=== PATIENT | male | born 1960 | race Caucasian/White ===

== ENCOUNTER 2017-01-03 07:52 | Day surgery (SDC) | payer OTHER ==
[2017-01-02 11:44] VITALS: BMI 25.1
[~2017-01-03] VITALS: Ht 177.8 cm; Wt 82.2 kg
[2017-01-03] VITALS (16 sets, daily range): BP systolic 98–115; BP diastolic 61–80; PULSE 62–82; RESP 16–17; Ht 177.8 cm; Wt 82.2 kg
[~2017-01-03 07:52] MED LIST: EPHEDrine SULFATE 50 MG/5 ML SYG ONE
[2017-01-03] MEDS ORDERED: DIPHENHYDRAMINE 50 MG INJ IV PRN (08:30)
[2017-01-03] MEDS ORDERED: CEFAZOLIN 2 GM/50 ML (PMX) 50 ML IVPB ONE (08:30)
[2017-01-03] MEDS ORDERED: OXYCODONE/ACETAMINOPHEN (5/325) TAB PO PRN ×2 (08:30)
[2017-01-03] MEDS ORDERED: ONDANSETRON 4 MG INJ IV PRN (08:30)
[2017-01-03] MEDS ORDERED: HYDROmorphONE (0.2 MG/ML) 10ML SYG IV PRN (08:30)
[2017-01-03] MEDS ORDERED: LACTATED RINGER'S 1,000 ML IV* SCH (08:30)
[2017-01-03] MEDS ORDERED: MEPERIDINE 25 MG INJ IV PRN (08:30)
[2017-01-03] MEDS ORDERED: PROCHLORPERAZINE 10 MG INJ IV PRN (08:30)
[2017-01-03] MEDS ORDERED: FENTAnyl 50 MCG/ML VIAL IV PRN (08:30)
[2017-01-03] MEDS ORDERED: MIDAZOLAM 1 MG/ML 2 ML INJ ONE (08:32)
[2017-01-03] MEDS ORDERED: LIDOCAINE 2% (SDV) 5 ML INJ ONE (08:32)
[2017-01-03] MEDS ORDERED: FENTAnyl 50 MCG/ML VIAL ONE (08:32)
[2017-01-03] MEDS ORDERED: PROPOFOL 20 ML ONE (08:32)
[2017-01-03] MEDS ORDERED: ASPI-664 PO (08:37)
[2017-01-03] MEDS ORDERED: CARV3.1260 PO (08:40)
[2017-01-03] MEDS ORDERED: ADV50050 INHALATION (08:44)
[2017-01-03] MEDS ORDERED: FURO40TA4 PO (08:45)
[2017-01-03] MEDS ORDERED: TRAM-40 PO (08:46)
[2017-01-03] MEDS ORDERED: SIMV20TA PO (08:47)
[2017-01-03] MEDS ORDERED: SPIR25TA PO (08:47)
[2017-01-03] MEDS ORDERED: NIT4 SL (08:47)
[2017-01-03] MEDS ORDERED: MELO-110 PO (08:48)
[2017-01-03] MEDS ORDERED: LISI-313 PO (08:48)
[2017-01-03] MEDS ORDERED: BUPIVACAINE 0.5% (SDV) 30 ML INJ ONE (09:59)
--- NOTE | 2017-01-03 10:00 | HPN ---
Date/Time of Note Date/Time of Note DATE: 01/03/17 TIME: 10:00 Interval H&P Admission Note Pt. seen H&P reviewed: No system changes BELEN OTTO DPM Jan 03, 2017 10:00
[2017-01-03] MEDS ORDERED: ONDANSETRON 4 MG INJ ONE (10:29)
[2017-01-03] MEDS ORDERED: METOCLOPRAMIDE 10 MG INJ ONE (10:29)
[2017-01-03] MEDS ORDERED: CEFAZOLIN 1 GM INJ ONE (10:30)
[2017-01-03] MEDS ORDERED: PHENYLephrine (100 MCG/ML) 5ML SYG ONE (10:35)
[2017-01-03] MEDS ORDERED: ACETAMINOPHEN 1000MG/100ML IV 100 ML ONE (10:58)
[2017-01-03] MEDS ORDERED: KETOROLAC 30 MG INJ ONE (10:58)
--- NOTE | 2017-01-03 11:25 | OPR ---
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 Postop diagnosis the same. Anesthesia was general operation: Patient was brought into the OR in approximately 10 cc of half percent plain Marcaine was utilized circumferentially around the left first metatarsophalangeal joint region. The tourniquet was applied to the foot and ankle was exsanguinated tourniquet was inflated approximately 250 mmHg. Attention was directed to the dorsal medial aspect of the first metatarsophalangeal joint region where an approximately 5 cm incision was performed. After sharp and blunt dissection were achieved care was taken to ligate any bleeding vessels and retract any nervous tissue in the region. Capsular tissue was then [place]. A #15 blade was utilized to perform illiterate lymph linear capsulotomy. Upon opening the joint capsule there was a small amount of what appeared to be gouty tophi. This is taken and sent to pathology for gross analysis. The capsular tissue was then reflected off of the bunion deformity. Utilizing the awan elevator it is released over the dorsal aspect medial and plantar aspect. And reflected. The bunion was a clear view. Utilizing the sagittal saw the bunion deformity was removed in toto from dorsal to plantar. Care was then taken to inspect the lateral aspect where a classical lateral capsulotomy was performed. The joint was free of any encumbrances. There was no osteoarthritic changes noted as central area above the head of the first metatarsal or the proximal phalanx. Attention is then once again directed to the medial aspect where a modified chevron osteotomy tenotomy is performed with a sagittal saw. The capital fragment was then moved laterally. And secured with a 0.062 K wire. A 0.045 K wire was then driven perpendicular to the dorsal osteotomy. The area was countersunk and drilled. And measured. It was established with a 3.0 #14 right medical cannulated headless screw will be utilized. Screw was driven from dorsal to plantar and there was excellent compression alignment approximation noted. The remaining K wires were then removed. The joint moved are free of any encumbrances. The area was copiously lavaged with antibiotic solution. The area was rasped smooth. In the capsular tissue was coapted and coapted with 3-0 and 2-0 Vicryl suture. The skin was then coapted with 4-0 nylon suture in a in a running stitch. A Adaptic was then applied over the years he has been Xeroform was then applied over the area. 4 x 4's and roll gauze and Coban. The tourniquet was released normoreactive hyperemia was noted all the digits of the left foot. This patient tolerated the procedures well and left room in stable condition resurges artery dictating BELEN OTTO DPM Jan 03, 2017 11:25
[2017-01-03] MEDS ORDERED: oxyCODONE 5 MG TAB PO PRN (11:30)
--- NOTE | 2017-01-03 15:15 | RADRPT ---
PROCEDURE: XR Left Foot. CLINICAL INDICATION: Left foot pain. Postop. TECHNIQUE: Three views. Frontal, lateral, and oblique. COMPARISON: None. FINDINGS: There is a single cannulated screw transfixing an osteotomy of the first metatarsal distally. Align ment is satisfactory. There is gas in the adjacent soft tissues related to the surgery. The articular surfaces are otherwise intact. There is no lytic or blastic lesion. IMPRESSION: 1. Satisfactory postoperative appearance of the left foot. RPTAT: QQ .Niko Taylor MD, MD Date Time Electronically viewed and signed by .Niko Taylor MD, MD on 01/03/2017 15:14 .R/
== END 2017-01-03 14:15 | disposition home or self-care (01) ==
LOC: SDS 07:52
PROVIDERS: ATTEND Podiatrist Foot & Ankle Surgery
DX: M20.12 Hallux valgus (acquired), left foot (principal); M21.612 Bunion of left foot; J44.9 Chronic obstructive pulmonary disease, unspecified; I50.9 Heart failure, unspecified; E78.5 Hyperlipidemia, unspecified; I25.10 Atherosclerotic heart disease of native coronary artery without angina pectoris; I12.9 Hypertensive chronic kidney disease with stage 1 through stage 4 chronic kidney disease, or unspecified chronic kidney disease; N18.9 Chronic kidney disease, unspecified; Z95.810 Presence of automatic (implantable) cardiac defibrillator
CPT/HCPCS: 28296; 73630; 87070; 88304; 88311; J0131; J0690; J1885; J2250; J2370; J2405; J2765; J3010; Q4131; Z7512; Z7610

== ENCOUNTER 2017-09-08 13:16 | Inpatient (IN) | END 2017-09-19 21:10 | disposition home health service (06) | DRG 471 ==